=== PATIENT | female | born 1990 | race Caucasian/White ===

== ENCOUNTER 2024-04-28 22:14 | Emergency (ER) | payer BC ==
[~2024-04-28] VITALS: Ht 165.1 cm; Wt 68.0 kg
[2024-04-28 22:19] VITALS: BP_SYST 115; PULSE 68; RESP 18; TEMP 98; O2SAT 99
[2024-04-28 23:48] LABS: BASOPHILS # (AUTO) 0.1 K/uL (0.0-0.2); EOSINOPHILS # (AUTO) 0.2 K/uL (0.0-0.4); EOSINOPHILS % (AUTO) 3.2 % (0.0-4.0); HEMATOCRIT 37.2 % (36-48); HEMOGLOBIN 12.7 g/dL (12.0-16.0); LYMPHOCYTES % (AUTO) 46.2 % (20.5-51.5); MEAN CORPUSCULAR HEMOGLOBIN 29 pg (27-31); MEAN CORPUSCULAR HGB CONC 34 % (32-36); MEAN CORPUSCULAR VOLUME 86 fL (79.0-98.0); MONOCYTES # (AUTO) 0.4 K/uL (0.0-1.0); MONOCYTES % (AUTO) 6.8 % (1.7-9.3); NEUTROPHILS # (AUTO) 2.8 K/uL (1.8-7.7); NEUTROPHILS % (AUTO) 42.8 % (40.0-70.0); PLATELET COUNT (AUTO) 250 K/uL (130-430); RED BLOOD CELL COUNT(AUTO) 4.34 MIL/uL (4.2-6.2); RED CELL DISTRIBUTION WIDTH 13.5 % (9.0-15.0); WHITE BLOOD COUNT (AUTO) 6.5 K/uL (4.8-10.8)
[2024-04-29 00:13] LABS: ANION GAP 5 (5-15); CARBON DIOXIDE 29 mmol/L (23-29); CHLORIDE 106 mmol/L (98-107); CREATININE 0.64 mg/dL (0.55-1.30); GFR AFRICAN AMERICAN 136 mL/min (>90); GFR NON AFRICAN-AMERICAN 112 mL/min (>90); GLUCOSE 91 mg/dL (74-106); POTASSIUM 3.9 mmol/L (3.5-5.1); SODIUM SERUM 140 mmol/L (136-145); UREA NITROGEN, BLOOD 17 mg/dL (8-21)
[2024-04-29 01:14] VITALS: BP_SYST 106; PULSE 63; RESP 16; TEMP 98.2; O2SAT 100
== END 2024-04-29 01:14 | disposition home or self-care (01) ==
LOC: SED 22:14
DX: R00.2 Palpitations (principal); R07.89 Other chest pain
CPT/HCPCS: 36415; 71045; 80048; 81025; 84484; 85025; 93005; 99285